=== PATIENT | male | born 1965 | race Caucasian/White ===

== ENCOUNTER 2017-08-08 19:59 | Emergency (ER) | payer OTHER ==
[2017-08-08 20:15] VITALS: BMI 26.5
--- NOTE | 2017-08-08 21:28 | PDOC ---
History of Present Illness - General History Source: Patient Exam Limitations: No Limitations - History of Present Illness Initial Comments: 08/08/17 21:52 52 year old male with no pmhx presented with one day history of sever LLQ abdominal pain started in AM and worsen through out the day 8/10 and became 10/ 10 with any movement , he feel better if he lay on left side. pain associated with nausea but no vomiting , he reports feeling fever, chills muscle spasm with movement. he feels constipated ad 2 hard BM A denies nay headache , blurry vision, sore throat , but reports post nasal drip, allergy since March he was treated with abx in May(Doxycyclin). Denies any urinary symptoms, no dysuria, no hematuria, no leg swelling . Pt had colonoscopy 5 years ago after he noticed blood in the stool. and it was negative. PMH: None PSH: None FH: Arhthymis in his father and HTN . Mother at age of 63 of aneurysm. Allergies : penicillin Meds: he use OTC Immodium and peptopismol Social: he smoke 3 years in college randomly, drink 3 cups of licker daily , denies nay drugs. he is to a male partner and has 3 cats. <Abdirizak Ames - Last Filed: 08/09/17 00:07> <Galina Coon - Last Filed: 08/09/17 02:04> - General Chief Complaint: Pain Stated Complaint: ABD PAIN Time Seen by Provider: 08/08/17 21:17 Past History - Travel Traveled outside of the country in the last 30 days: No Close contact w/someone who was outside of country & ill: No - Past Medical History Anemia: No Asthma: No Cancer: No Cardiac Disorders: No Hx Myocardial Infarction: No CVA: No COPD: No CHF: No DVT: No Dementia: No Diabetes: No Dialysis: No GI Disorders: No Disorders: No HTN: No Hypercholesterolemia: No - Suicide/Smoking/Psychosocial Hx Smoking History: Never smoked <Abdirizak Ames - Last Filed: 08/09/17 00:07> <Galina Coon - Last Filed: 08/09/17 02:04> - Past Medical History Allergies/Adverse Reactions: Allergies Allergy/AdvReac Type Severity Reaction Status Date / Time Penicillins Allergy Verified 08/08/17 20:12 Home Medications: Ambulatory Orders NK [No Known Home Medication] 08/08/17 Review of Systems - Review of Systems Able to Perform ROS?: Yes Is the patient limited Divehi proficient: No Constitutional: Yes: Chills, Diaphoresis, Fever HEENTM: No: Symptoms Reported, See HPI, Eye Pain, Blurred Vision, Tearing, Recent change in vision, Double Vision, Cataracts, Ear Pain, Ocular Prothesis, Ear Discharge, Nose Pain, Nose Congestion, Tinnitus, Nose Bleeding, Hearing Loss , Throat Pain, Throat Swelling, Mouth Pain, Dental Problems, Difficulty Swallowing, Mouth Swelling, Other Respiratory: Yes: Cough. No: Orthopnea, Shortness of Breath, Stridor, Wheezing Cardiac (ROS): No: Symptoms Reported, See HPI, Chest Pain, Edema, Irregular Heart Rate, Lightheadedness, Palpitations, Syncope, Chest Tightness, Other ABD/GI: Yes: Constipated, Nausea, Abdominal cramping. No: Difficulty Swallowing , Poor Appetite, Poor Fluid Intake, Rectal Bleeding, Vomiting : No: Symptoms Reported, See HPI, Burning, Dysuria, Discharge, Frequency, Flank Pain, Hematuria, Incontinence, Pain, Urgency, Testicular Mass, Testicular Swelling, Lesions, Testicular Pain, Other Integumentary: No: Symptoms Reported, See HPI, Bruising, Change in Color, Change in Hair/Nails, Dryness, Erythema, Flushing, Lesions, Lumps, Pallor, Pruritus, Rash, Sweating, Other Neurological: No: Symptoms reported, See HPI, Headache, Numbness, Paresthesia, Pre-Existing Deficit, Seizure, Tingling, Tremors, Weakness, Unsteady Gait, Ataxia, Dizziness, Other Psychiatric: No: Anxiety, Depression, Frequent Crying, Stressors, Sleep Pattern Change, Emotional Problems, Mood Swings, Change in Appetite, Other Endocrine: No: Symptoms Reported, See HPI, Excessive Sweating, Flushing, Intolerance to Cold, Intolerance to Heat, Increased Hunger, Increased Thirst, Increased Urine, Unexplained Weight Gain, Unexplained Weight Loss, Change in Weight, Other Hematologic/Lymphatic: No: Symptoms Reported, See HPI, Anemia, Blood Clots, Easy Bleeding, Easy Bruising, Bleeding Diathesis, Lymph Node Abnormalities, Swollen Glands, Other <Abdirizak Ames - Last Filed: 08/09/17 00:07> *Physical Exam - Vital Signs Last Vital Signs Temp Pulse Resp BP Pulse Ox 99.2 F 82 18 114/57 98 08/08/17 20:13 08/08/17 20:13 08/08/17 20:13 08/08/17 20:13 08/08/17 20:13 08/08/17 22:08 Head : NC/AT Neck: supple ENT: moist mucus membrane, PEARLA, EOMI, Lungs : CTA B/L , No wheezes, no accessory muscle use. Heart: RRR, Normal S1,S2, no M/R/G Abdomen :obese, soft , LLQ tenderness, non distended, + BS Legs: + DP pulse, no edema Neurology: no focal deficit, normal speech, normal gait. Skin: warm , dry <Abdirizak Ames - Last Filed: 08/09/17 00:07> - Vital Signs Last Vital Signs Temp Pulse Resp BP Pulse Ox 99.2 F 82 18 114/57 98 08/08/17 20:13 08/08/17 20:13 08/08/17 20:13 08/08/17 20:13 08/08/17 20:13 <Galina Coon - Last Filed: 08/09/17 02:04> ED Treatment Course - LABORATORY CBC & Chemistry Diagram: 08/08/17 22:00 08/08/17 22:00 <Abdirizak Ames - Last Filed: 08/09/17 00:07> - LABORATORY CBC & Chemistry Diagram: 08/08/17 22:00 08/08/17 22:00 - ADDITIONAL ORDERS Additional order review: Laboratory Results 08/09/17 08/09/17 08/08/17 00:25 00:00 22:00 Sodium 139 Potassium 4.1 Chloride 102 Carbon Dioxide 24 Anion Gap 13 BUN 13 Creatinine 1.0 Creat Clearance w eGFR > 60 Random Glucose 109 H Calcium 9.2 Total Bilirubin 1.0 AST 18 ALT 36 Alkaline Phosphatase 88 C-Reactive Protein 4.3 H Total Protein 7.7 Albumin 4.0 Total Amylase 28 Lipase 80 80 Urine Color Straw Urine Appearance Clear Urine pH 6.0 Ur Specific [place] 1.019 Urine Protein Negative Urine Glucose (UA) Negative Urine Ketones Negative Urine Blood Negative Urine Nitrite Negative Urine Bilirubin Negative Urine Urobilinogen Negative Ur Leukocyte Esterase Negative 08/08/17 22:00 RBC 4.53 MCV 98.3 H MCHC 34.5 RDW 12.8 MPV 8.8 Neutrophils % 81.2 Lymphocytes % 10.6 Monocytes % 7.6 Eosinophils % 0.2 Basophils % 0.4 - Medications Given in the ED: ED Medications Discontinued Medications Generic Name Dose Route Start Last Admin Trade Name Ann PRN Reason Stop Dose Admin Sodium Chloride 1,000 mls @ 1,000 mls/hr 08/08/17 21:48 08/08/17 22:03 Normal Saline - IV 08/08/17 22:47 1,000 mls/hr ASDIR STA Administration Morphine Sulfate 2 mg 08/08/17 23:21 08/08/17 23:33 Morphine Injection - IVPUSH 08/08/17 23:22 2 mg ONCE ONE Administration Morphine Sulfate 4 mg 08/09/17 01:18 08/09/17 01:19 Morphine Injection - IVPUSH 08/09/17 01:19 4 mg NOW ONE Administration Ondansetron HCl 4 mg 08/08/17 21:48 08/08/17 22:50 Zofran Injection IVPUSH 08/08/17 21:49 Not Given ONCE STA Ondansetron HCl 4 mg 08/09/17 01:19 08/09/17 01:19 Zofran Injection IVPUSH 08/09/17 01:20 4 mg NOW ONE Administration <Galina Coon - Last Filed: 08/09/17 02:04> Medical Decision Making - Medical Decision Making 08/09/17 00:06 CTA abdomen with contrast CBC, CMP ESR, CRP Amylase lipase Morphine 2 gm IV push , Zofran 4mg IV push once IV NS @ 100 CC/hr <Abdirizak Ames - Last Filed: 08/09/17 00:07> *DC/Admit/Observation/Transfer <Abdirizak Ames - Last Filed: 08/09/17 00:07> - Discharge Dispostion Admit: Yes <Galina Coon - Last Filed: 08/09/17 02:04> Diagnosis at time of Disposition: LLQ abdominal pain, Diverticulitis - Referrals Referrals: ON STAFF,NOT [Primary Care Provider] - - Patient Instructions - Post Discharge Activity
--- NOTE | 2017-08-08 21:47 | PDOC ---
Attending Attestation - Resident Resident Name: Abdirizak Ames - ED Attending Attestation I have performed the following: I have examined & evaluated the patient, The case was reviewed & discussed with the resident, I agree w/resident's findings & plan, Exceptions are as noted - HPI HPI: 08/08/17 21:46 52 yo male with LLQ pain since 5 am, pain which is 8/10 no significant PMH neg colonscopy 5 years ago - Physicial Exam PE: 08/08/17 21:53 52 yo male with LLQ pain that radiates to his groin head ncat neck supple lungs cta b/l cvs [id number] abd LLQ tenderness,no rebound ,no guarding ext no e/c/c neuro axox3, ambulatory skin warm and dry no cva tenderness psych appropriate - Medical Decision Making 08/08/17 21:56 r/o kikney stone,hernia 08/09/17 02:05 52-year-old male presents with left lower quadrant pain. This started today. Denied any high fevers or vomiting , no bloody stool WBC slightly elevated at 11 Chemistries unremarkable CAT scan of abdomen and pelvis with contrast shows uncomplicated sigmoid diverticulitis. Impression diverticulitis with no fever, no bloody diarrhea, no vomiting. Plan IV fluids, antibiotics and pain medications. Discussed with patient and he would prefer to have ED OBS with plan to be discharged home after antibiotics and pain meds are recieved His primary physician is in [facility] and he will follow up with GI plan -to be discharged home with prescriptions for Levaquin and Flagyl
[2017-08-08] MEDS ORDERED: SODIUM CHLORIDE 1,000 ML IV STA (21:48)
[2017-08-08] MEDS ORDERED: ONDANSETRON 4 MG/2 ML VIAL IVPUSH STA (21:48)
[2017-08-08] MEDS ORDERED: ONDANSETRON 4 MG/2 ML VIAL ONE (21:53)
[2017-08-08 22:08] LABS: BASO % 0.4 % (0-2.0); EOS % 0.2 % (0-4.5); HEMATOCRIT 44.5 % (35.4-49); HEMOGLOBIN 15.3 GM/dL (11.7-16.9); LYMPH % 10.6 % (8-40); MCH 33.9 pg (25.7-33.7); MCHC 34.5 g/dl (32.0-35.9); MEAN CELL VOLUME 98.3 fl (80-96); MEAN PLT VOLUME 8.8 fl (7.5-11.1); MONO % 7.6 % (3.8-10.2); NEUT % 81.2 % (42.8-82.8); PLATELET COUNT 201 K/MM3 (134-434); RBC 4.53 M/mm3 (4.00-5.60); RDW 12.8 % (11.9-15.9); WHITE BLOOD COUNT 11.6 K/mm3 (4.0-10.0)
[2017-08-08] MEDS ORDERED: morphine CARPU-JECT 2 MG/1 ML DISP.SYRIN IVPUSH ONE (23:21)
[2017-08-08] MEDS ORDERED: morphine SULFATE 4 MG/ML VIAL ONE (23:27)
[2017-08-08 23:33] LABS: ANION GAP 13 (8-16); BLOOD UREA NITROGEN 13 mg/dL (7-18); CALCIUM 9.2 mg/dL (8.5-10.1); CHLORIDE 102 mmol/L (98-107); CO2 24 mmol/L (21-32); GLUCOSE,RANDOM 109 mg/dL (74-106); LIPASE 80 U/L (73-393); POTASSIUM 4.1 mmol/L (3.5-5.1); SGOT/AST 18 U/L (15-37); SGPT/ALT 36 U/L (12-78); SODIUM 139 mmol/L (136-145); TOT PROT 7.7 g/dl (6.4-8.2)
[2017-08-08 23:34] LABS: ALK PHOS 88 U/L (45-117)
[2017-08-09 00:35] LABS: URINE APPEARANCE CLEAR; URINE BILIRUBIN NEGATIVE (NEGATIVE); URINE BLOOD NEGATIVE (NEGATIVE); URINE COLOR STRAW; URINE GLUCOSE (UA) NEGATIVE (NEGATIVE); URINE KETONE NEGATIVE (NEGATIVE); URINE LEUK ESTERASE NEGATIVE (NEGATIVE); URINE NITRITE NEGATIVE (NEGATIVE); URINE PROTEIN NEGATIVE (NEGATIVE); URINE UROBILINOGEN NEGATIVE mg/dL (0.2-1.0)
[2017-08-09] MEDS ORDERED: ONDANSETRON 4 MG/2 ML VIAL ONE (01:12)
[2017-08-09] MEDS ORDERED: morphine SULFATE 4 MG/ML VIAL ONE (01:13)
[2017-08-09] MEDS ORDERED: morphine CARPU-JECT 4 MG/1 ML DISP.SYRIN IVPUSH ONE (01:18)
[2017-08-09] MEDS ORDERED: ONDANSETRON 4 MG/2 ML VIAL IVPUSH ONE (01:19)
--- NOTE | 2017-08-09 03:45 | PDOC ---
*Physical Exam - Vital Signs Last Vital Signs Temp Pulse Resp BP Pulse Ox 99.2 F 82 18 114/57 98 08/08/17 20:13 08/08/17 20:13 08/08/17 20:13 08/08/17 20:13 08/08/17 20:13 ED Treatment Course - LABORATORY CBC & Chemistry Diagram: 08/08/17 22:00 08/08/17 22:00 - ADDITIONAL ORDERS Additional order review: Laboratory Results 08/09/17 08/09/17 08/08/17 00:25 00:00 22:00 Sodium 139 Potassium 4.1 Chloride 102 Carbon Dioxide 24 Anion Gap 13 BUN 13 Creatinine 1.0 Creat Clearance w eGFR > 60 Random Glucose 109 H Calcium 9.2 Total Bilirubin 1.0 AST 18 ALT 36 Alkaline Phosphatase 88 C-Reactive Protein 4.3 H Total Protein 7.7 Albumin 4.0 Total Amylase 28 Lipase 80 80 Urine Color Straw Urine Appearance Clear Urine pH 6.0 Ur Specific [place] 1.019 Urine Protein Negative Urine Glucose (UA) Negative Urine Ketones Negative Urine Blood Negative Urine Nitrite Negative Urine Bilirubin Negative Urine Urobilinogen Negative Ur Leukocyte Esterase Negative 08/08/17 22:00 RBC 4.53 MCV 98.3 H MCHC 34.5 RDW 12.8 MPV 8.8 Neutrophils % 81.2 Lymphocytes % 10.6 Monocytes % 7.6 Eosinophils % 0.2 Basophils % 0.4 - Medications Given in the ED: ED Medications Discontinued Medications Generic Name Dose Route Start Last Admin Trade Name Freq PRN Reason Stop Dose Admin Sodium Chloride 1,000 mls @ 1,000 mls/hr 08/08/17 21:48 08/08/17 22:03 Normal Saline - IV 08/08/17 22:47 1,000 mls/hr ASDIR STA Administration Levofloxacin 500 mg in 100 mls @ 100 mls/hr 08/09/17 01:09 08/09/17 02:17 Levaquin 500 Mg Premixed Ivpb - IVPB 08/09/17 02:08 100 mls/hr ONCE ONE Administration Metronidazole 500 mg in 100 mls @ 100 mls/hr 08/09/17 01:09 08/09/17 01:18 Flagyl 500mg Premixed Ivpb - IVPB 08/09/17 02:08 100 mls/hr ONCE ONE Administration Morphine Sulfate 2 mg 08/08/17 23:21 03/12/18 23:33 Morphine Injection - IVPUSH 08/08/17 23:22 2 mg ONCE ONE Administration Morphine Sulfate 4 mg 08/09/17 01:18 08/09/17 01:19 Morphine Injection - IVPUSH 08/09/17 01:19 4 mg NOW ONE Administration Ondansetron HCl 4 mg 08/08/17 21:48 08/08/17 22:50 Zofran Injection IVPUSH 08/08/17 21:49 Not Given ONCE STA Ondansetron HCl 4 mg 08/09/17 01:19 08/09/17 01:19 Zofran Injection IVPUSH 08/09/17 01:20 4 mg NOW ONE Administration Medical Decision Making - Medical Decision Making 08/09/17 03:43 Patient signed out me by Dr. Coon as uncomplicated diverticulitis pending po trial and pain control. Pain is now resolved, and patient has tolerated PO. WIll discharge home. *DC/Admit/Observation/Transfer Diagnosis at time of Disposition: LLQ abdominal pain, Diverticulitis - Discharge Dispostion Disposition: HOME Condition at time of disposition: Good Admit: No - Prescriptions - Referrals - Patient Instructions - Post Discharge Activity
[2017-08-09 04:05] VITALS: BP 112/65; PULSE 90; TEMP 98.8
== END 2017-08-09 04:05 | disposition home or self-care (01) ==
LOC: JER 19:59 → JERBED 08-09 02:04 → UNDOADMOB 08-09 02:04 → JER 08-09 04:05
PROC: 3E03329 Introduction of Other Anti-infective into Peripheral Vein, Percutaneous Approach (ICD-10-PCS; principal; 2017-08-08)
PROC: 3E03329 Introduction of Other Anti-infective into Peripheral Vein, Percutaneous Approach (ICD-10-PCS; 2017-08-08)
PROC: 3E033NZ Introduction of Analgesics, Hypnotics, Sedatives into Peripheral Vein, Percutaneous Approach (ICD-10-PCS; 2017-08-08)
PROC: 3E033NZ Introduction of Analgesics, Hypnotics, Sedatives into Peripheral Vein, Percutaneous Approach (ICD-10-PCS; 2017-08-08)
PROC: 3E033GC Introduction of Other Therapeutic Substance into Peripheral Vein, Percutaneous Approach (ICD-10-PCS; 2017-08-08)
DX: K57.92 Diverticulitis of intestine, part unspecified, without perforation or abscess without bleeding (principal)
CPT/HCPCS: 36415; 74177-TC; 80053; 81003; 82150; 83690; 85025; 85651; 86140; 99283-25; J7030